=== PATIENT | female | born 1975 | race Caucasian/White ===

== ENCOUNTER 2019-04-10 10:21 | Outpatient (CLI) | payer OTHER ==
--- NOTE | 2019-04-10 14:27 | MRI ---
MRI RIGHT SHOULDER 04/10/19 PROVIDED CLINICAL HISTORY: Right shoulder pain. FINDINGS: Tendinosis changes are seen involving the distal infraspinatus tendon. The components of the rotator cuff appear intact. The long head biceps tendon appears intact and is normally located. The glenoid labrum and glenohumeral articular cartilage are suboptimally evaluated in the absence of joint distention but appear grossly normal. The amount of fluid within the glenohumeral joint appears physiologic. There is slightly greater shelby n physiologic subacromial subdeltoid bursal fluid. There is a 9 mm simple appearing bone cyst in the proximal humeral diaphyseal region. Regional marrow and muscular signal appear otherwise unremarkable. Mild acromioclavicular joint degenerative change. IMPRESSION: 1. Slightly greater than physiologic subacromial subdeltoid bursa fluid, which may reflect mild bursitis. 2. Mild acromioclavicular joint osteoarthrosis. POS: [facility]
== END 2019-04-10 10:22 | disposition home or self-care (01) ==
LOC: TBSIIMAG 10:21
PROVIDERS: ATTEND Family Medicine
DX: M24.811 Other specific joint derangements of right shoulder, not elsewhere classified (principal); M19.011 Primary osteoarthritis, right shoulder